=== PATIENT | male | born 1960 | race American Indian/Alaskan Native ===

== ENCOUNTER 2020-03-06 13:29 | Inpatient (IN) | payer OTHER ==
--- NOTE | 2020-03-06 14:13 | Event Note ---
ED Screening Note Date of service: 03/06/20 Time: 14:12 ED Screening Note: 59-year-old -Swedish male presents to the emergency room for 1week of abdominal pain and decreased bowel movement. Patient reports nausea and vomiting. Patient states he has had Tums, mag citrate with no relief. Aylett he may have a fever. Cold chills. This initial assessment/diagnostic orders/clinical plan/treatment(s) is/are subject to change based on patients health status, clinical progression and re- assessment by fellow clinical providers in the ED. Further treatment and workup at subsequent clinical providers discretion. Patient/guardian urged not to elope from the ED as their condition may be serious if not clinically assessed and managed. Initial orders include:
--- NOTE | 2020-03-06 14:58 | XRay Report ---
XR abdomen 1V ap INDICATION / CLINICAL INFORMATION: Abdominal pain constipation. COMPARISON: None available. FINDINGS: TUBES / LINES: None. BOWEL GAS PATTERN: Nonobstructive bowel gas pattern. FREE AIR / EXTRALUMINAL GAS: None seen. ADDITIONAL FINDINGS: No significant additional findings. L5-S1 posterior spinal fusion. IMPRESSION: 1. No significant abnormality. Signer Name: Myron Low MD Signed: 03/06/2020 2:54 PM Workstation Name: [id number]
[2020-03-06 15:10] LABS: Hematocrit 49.3 % (35.5-45.6); Hemoglobin 16.8 gm/dl (11.8-15.2); Mean Corpuscular HGB Conc 34 % (32-34); Mean Corpuscular Volume 89 fl (84-94); Platelet Count 281 K/mm3 (140-440); Red Blood Count 5.54 M/mm3 (3.65-5.03); Red Cell Distribution Width 14.9 % (13.2-15.2)
[2020-03-06 15:16] LABS: Alanine Aminotransferase 10 units/L (7-56); Albumin 4.1 g/dL (3.9-5); Blood Urea Nitrogen 9 mg/dL (9-20); Calcium 9.9 mg/dL (8.4-10.2); Hemolysis Index 11
[2020-03-06 15:17] LABS: BUN/Creatinine Ratio 13
[2020-03-06 16:04] LABS: RBC Morphology Normal; Total Cells Counted 100
[2020-03-06] MEDS ORDERED: FAMOTIDINE 20 MG/2 ML INJ IV ONE (19:34)
[2020-03-06] MEDS ORDERED: SODIUM CHLORIDE 0.9% 1000 ML 1,000 ML IV ONE ×2 (19:34→22:06)
[2020-03-06] MEDS ORDERED: ONDANSETRON 4 MG/2 ML INJ IV ONE (19:34)
[2020-03-06] MEDS ORDERED: MORPHINE 4 MG/1 ML INJ IV ONE (19:34)
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
[2020-03-06 22:18] LABS: Bilirubin,Urine NEG (Negative); Blood,Urine SM (Negative); Color,Urine Yellow (Yellow); Mucus,Urine 3+ /HPF; Protein,Urine <15 mg/dL mg/dL (Negative); Urobilinogen,Urine < 2.0 mg/dL (<2.0)
[2020-03-06] MEDS ORDERED: ACETAMINOPHEN 325 MG TAB PO PRN (23:33)
[2020-03-06] MEDS ORDERED: ONDANSETRON 4 MG/2 ML INJ IV PRN (23:33)
[2020-03-06] MEDS ORDERED: DEXTROSE 50% IN WATER (25GM) 50 ML SYRINGE IV PRN (23:33)
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
[2020-03-07] MEDS: MORPHINE 2 MG/1 ML INJ IV PRN ×4 (02:45→21:24)
[2020-03-07 06:22] LABS: Basophils % (Auto) 0.9 % (0.0-1.8); Eosinophils % (Auto) 0.9 % (0.0-4.3); Hemoglobin 15.7 gm/dl (11.8-15.2); Lymphocytes # (Auto) 1.6 K/mm3 (1.2-5.4); Lymphocytes % (Auto) 39.1 % (13.4-35.0); Mean Corpuscular HGB Conc 34 % (32-34); Mean Corpuscular Volume 90 fl (84-94); Monocytes # (Auto) 0.3 K/mm3 (0.0-0.8); Monocytes % (Auto) 7.2 % (0.0-7.3); Platelet Count 225 K/mm3 (140-440); Red Blood Count 5.14 M/mm3 (3.65-5.03); Red Cell Distribution Width 14.9 % (13.2-15.2)
[2020-03-07 06:31] LABS: INR 1.07 (0.87-1.13)
[2020-03-07 06:38] LABS: Blood Urea Nitrogen 9 mg/dL (9-20); Calcium 9.1 mg/dL (8.4-10.2); Hemolysis Index 5
[2020-03-07 06:39] LABS: BUN/Creatinine Ratio 15
[2020-03-07] MEDS: SODIUM CHLORIDE 0.9% 1000 ML 1,000 ML IV SCH ×2 (07:34→14:57)
[2020-03-07] MEDS: INSULIN LISPRO 100 UNIT/ML VIAL 3 mL SUB-Q SCH ×4 (09:34→21:25)
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
--- NOTE | 2020-03-07 12:01 | Progress Note ---
Assessment and Plan Assessment and plan: Acute pancreatitis. Etiology secondary to alcohol. Continue to trend LFTs and lipase. CT showing inflammatory changes in the head of pancreas. no gallstones seen. Continue IV fluid hydration and n.p.o. status. Follow-up lipid panel and right upper quadrant ultrasound. Diabetes mellitus type 2, uncontrolled. Continue Accu-Cheks and sliding scale insulin Abdominal pain. Etiology secondary to above. Continue supportive care DVT prophylaxis. Continue subcutaneous Lovenox. Disposition. Anticipate discharge in a.m. History Interval history: No new issues overnight. Hospitalist Physical - Constitutional Vitals: Temp Pulse Resp BP Pulse Ox 97.2 F L 78 16 126/75 95 03/07/20 04:17 03/07/20 07:52 03/07/20 04:17 03/07/20 04:17 03/07/20 04:17 General appearance: Present: no acute distress, well-nourished - EENT Eyes: Present: PERRL, EOM intact ENT: hearing intact, clear oral mucosa, dentition normal - Neck Neck: Present: supple, normal ROM - Respiratory Respiratory effort: normal Respiratory: bilateral: CTA - Cardiovascular Rhythm: regular Heart Sounds: Present: S1 & S2. Absent: gallop, rub - Extremities Extremities: no ischemia, No edema, Full ROM - Abdominal General gastrointestinal: soft, non-tender, non-distended, normal bowel sounds - Integumentary Integumentary: Present: clear, warm, dry - Neurologic Neurologic: CNII-XII intact, moves all extremities Results - Labs CBC & Chem 7: 03/07/20 05:45 03/07/20 05:45 Labs: Laboratory Last Values WBC 4.0 K/mm3 (4.5-11.0) L 03/07/20 05:45 RBC 5.14 M/mm3 (3.65-5.03) H 03/07/20 05:45 Hgb 15.7 gm/dl (11.8-15.2) H 03/07/20 05:45 Hct 46.0 % (35.5-45.6) H 03/07/20 05:45 MCV 90 fl (84-94) 03/07/20 05:45 MCH 31 pg (28-32) 03/07/20 05:45 MCHC 34 % (32-34) 03/07/20 05:45 RDW 14.9 % (13.2-15.2) 03/07/20 05:45 Plt Count 225 K/mm3 (140-440) 03/07/20 05:45 Lymph % (Auto) 39.1 % (13.4-35.0) H 03/07/20 05:45 [place] % (Auto) 7.2 % (0.0-7.3) 03/07/20 05:45 Eos % (Auto) 0.9 % (0.0-4.3) 03/07/20 05:45 Baso % (Auto) 0.9 % (0.0-1.8) 03/07/20 05:45 Lymph # (Auto) 1.6 K/mm3 (1.2-5.4) 03/07/20 05:45 [place] # (Auto) 0.3 K/mm3 (0.0-0.8) 03/07/20 05:45 Eos # (Auto) 0.0 K/mm3 (0.0-0.4) 03/07/20 05:45 Baso # (Auto) 0.0 K/mm3 (0.0-0.1) 03/07/20 05:45 Add Manual Diff Complete 03/06/20 14:44 Total Counted 100 03/06/20 14:44 Seg Neutrophils % 51.9 % (40.0-70.0) 03/07/20 05:45 Seg Neuts % (Manual) 57.0 % (40.0-70.0) 03/06/20 14:44 Band Neutrophils % 0 % 03/06/20 14:44 Lymphocytes % (Manual) 30.0 % (13.4-35.0) 03/06/20 14:44 Reactive Lymphs % (Man) 0 % 03/06/20 14:44 Monocytes % (Manual) 7.0 % (0.0-7.3) 03/06/20 14:44 Eosinophils % (Manual) 3.0 % (0.0-4.3) 03/06/20 14:44 Basophils % (Manual) 3.0 % (0.0-1.8) H 03/06/20 14:44 Metamyelocytes % 0 % 03/06/20 14:44 Myelocytes % 0 % 03/06/20 14:44 Promyelocytes % 0 % 03/06/20 14:44 Blast Cells % 0 % 03/06/20 14:44 Nucleated RBC % Not Reportable 03/06/20 14:44 Seg Neutrophils # 2.1 K/mm3 (1.8-7.7) 03/07/20 05:45 Seg Neutrophils # Man 2.7 K/mm3 (1.8-7.7) 03/06/20 14:44 Band Neutrophils # 0.0 K/mm3 03/06/20 14:44 Lymphocytes # (Manual) 1.4 K/mm3 (1.2-5.4) 03/06/20 14:44 Abs React Lymphs (Man) 0.0 K/mm3 03/06/20 14:44 Monocytes # (Manual) 0.3 K/mm3 (0.0-0.8) 03/06/20 14:44 Eosinophils # (Manual) 0.1 K/mm3 (0.0-0.4) 03/06/20 14:44 Basophils # (Manual) 0.1 K/mm3 (0.0-0.1) 03/06/20 14:44 Metamyelocytes # 0.0 K/mm3 03/06/20 14:44 Myelocytes # 0.0 K/mm3 03/06/20 14:44 Promyelocytes # 0.0 K/mm3 03/06/20 14:44 Blast Cells # 0.0 K/mm3 03/06/20 14:44 WBC Morphology Not Reportable 03/06/20 14:44 Hypersegmented Neuts Not Reportable 03/06/20 14:44 Hyposegmented Neuts Not Reportable 03/06/20 14:44 Hypogranular Neuts Not Reportable 03/06/20 14:44 Smudge Cells Not Reportable 03/06/20 14:44 Toxic Granulation Not Reportable 03/06/20 14:44 Toxic Vacuolation Not Reportable 03/06/20 14:44 Dohle Bodies Not Reportable 03/06/20 14:44 Pelger-Huet Anomaly Not Reportable 03/06/20 14:44 Rizwan Rods Not Reportable 03/06/20 14:44 Platelet Estimate Not Reportable 03/06/20 14:44 Clumped Platelets Not Reportable 03/06/20 14:44 Plt Clumps, EDTA Not Reportable 03/06/20 14:44 Large Platelets Not Reportable 03/06/20 14:44 Giant Platelets Not Reportable 03/06/20 14:44 Platelet Satelliting Not Reportable 03/06/20 14:44 Plt Morphology Comment Not Reportable 03/06/20 14:44 RBC Morphology Normal 03/06/20 14:44 Dimorphic RBCs Not Reportable 03/06/20 14:44 Polychromasia Not Reportable 03/06/20 14:44 Hypochromasia Not Reportable 03/06/20 14:44 Poikilocytosis Not Reportable 03/06/20 14:44 Anisocytosis Not Reportable 03/06/20 14:44 Microcytosis Not Reportable 03/06/20 14:44 Macrocytosis Not Reportable 03/06/20 14:44 Spherocytes Not Reportable 03/06/20 14:44 Pappenheimer Bodies Not Reportable 03/06/20 14:44 Sickle Cells Not Reportable 03/06/20 14:44 Target Cells Not Reportable 03/06/20 14:44 Tear Drop Cells Not Reportable 03/06/20 14:44 Ovalocytes Not Reportable 03/06/20 14:44 Helmet Cells Not Reportable 03/06/20 14:44 Ann-[place] Bodies Not Reportable 03/06/20 14:44 [place] Rings Not Reportable 03/06/20 14:44 Angie Cells Not Reportable 03/06/20 14:44 Bite Cells Not Reportable 03/06/20 14:44 Crenated Cell Not Reportable 03/06/20 14:44 Elliptocytes Not Reportable 03/06/20 14:44 Acanthocytes (Spur) Not Reportable 03/06/20 14:44 Rouleaux Not Reportable 03/06/20 14:44 Hemoglobin C Crystals Not Reportable 03/06/20 14:44 Schistocytes Not Reportable 03/06/20 14:44 Malaria parasites Not Reportable 03/06/20 14:44 Ovi Bodies Not Reportable 03/06/20 14:44 Hem Pathologist Commnt No 03/06/20 14:44 PT 14.0 Sec. (12.2-14.9) 03/07/20 05:45 INR 1.07 (0.87-1.13) 03/07/20 05:45 Sodium 134 mmol/L (137-145) L 03/07/20 05:45 Potassium 3.8 mmol/L (3.6-5.0) 03/07/20 05:45 Chloride 97.8 mmol/L (98-107) L 03/07/20 05:45 Carbon Dioxide 25 mmol/L (22-30) 03/07/20 05:45 Anion Gap 15 mmol/L 03/07/20 05:45 BUN 9 mg/dL (9-20) 03/07/20 05:45 Creatinine 0.6 mg/dL (0.8-1.3) L 03/07/20 05:45 Estimated GFR > 60 ml/min 03/07/20 05:45 BUN/Creatinine Ratio 15 % 03/07/20 05:45 Glucose 293 mg/dL (75-100) H 03/07/20 05:45 POC Glucose 208 mg/dL (70-105) H 03/07/20 12:03 Calcium 9.1 mg/dL (8.4-10.2) 03/07/20 05:45 Total Bilirubin 0.40 mg/dL (0.1-1.2) 03/06/20 14:44 AST 9 units/L (5-40) 03/06/20 14:44 ALT 10 units/L (7-56) 03/06/20 14:44 Alkaline Phosphatase 63 units/L (35-129) 03/06/20 14:44 Total Protein 7.9 g/dL (6.3-8.2) 03/06/20 14:44 Albumin 4.1 g/dL (3.9-5) 03/06/20 14:44 Albumin/Globulin Ratio 1.1 % 03/06/20 14:44 Lipase 59 units/L (13-60) 03/07/20 05:45 Urine Color Yellow (Yellow) 03/06/20 22:05 Urine Turbidity Clear (Clear) 03/06/20 22:05 Urine pH 5.0 (5.0-7.0) 03/06/20 22:05 Ur Specific [place] 1.060 (1.003-1.030) H 03/06/20 22:05 Urine Protein <15 mg/dl mg/dL (Negative) 03/06/20 22:05 Urine Glucose (UA) >=500 mg/dL (Negative) 03/06/20 22:05 Urine Ketones 20 mg/dL (Negative) 03/06/20 22:05 Urine Blood Sm (Negative) 03/06/20 22:05 Urine Nitrite Neg (Negative) 03/06/20 22:05 Urine Bilirubin Neg (Negative) 03/06/20 22:05 Urine Urobilinogen < 2.0 mg/dL (<2.0) 03/06/20 22:05 Ur Leukocyte Esterase Sm (Negative) 03/06/20 22:05 Urine WBC (Auto) 26.0 /HPF (0.0-6.0) H 03/06/20 22:05 Urine RBC (Auto) 120.0 /HPF (0.0-6.0) 03/06/20 22:05 U Epithel Cells (Auto) 9.0 /HPF (0-13.0) 03/06/20 22:05 Urine Mucus 3+ /HPF 03/06/20 22:05 Urine Yeast (Budding) 1+ /HPF 03/06/20 22:05 [place]/IV: Voiding Method Toilet IV Catheter Type [Left Hand] INT / Saline Lock Active Medications - Current Medications Current Medications: Generic Name Dose Route Start Last Admin Trade Name Freq PRN Reason Stop Dose Admin Acetaminophen 650 mg 03/06/20 23:33 Tylenol PO Q4H PRN Pain MILD(1-3)/Fever >100.5/ANDREWS Dextrose 0 ml 03/06/20 23:33 D50w (25gm) Syringe IV Q30MIN PRN Hypoglycemia Protocol Enoxaparin Sodium 40 mg 03/07/20 22:00 Enoxaparin SUB-Q QDAY@2200 [facility] Protocol Sodium Chloride 1,000 mls @ 150 mls/hr 03/06/20 23:45 03/07/20 07:34 Nacl 0.9% 1000 Ml IV 150 mls/hr DIRECT ANG Administration Insulin Human Lispro 0 unit 03/07/20 07:30 03/07/20 09:34 Humalog SUB-Q Not Given ACHS [facility] Protocol Morphine Sulfate 2 mg 03/06/20 23:33 03/07/20 07:24 Morphine IV 2 mg Q4H PRN Administration Pain, Moderate (4-6) Ondansetron HCl 4 mg 03/06/20 23:33 Zofran IV Q8H PRN Nausea And Vomiting Sodium Chloride 10 ml 03/07/20 10:00 03/07/20 09:57 Sodium Chloride Flush Syringe 10 Ml IV Not Given BID ANG Sodium Chloride 10 ml 03/06/20 23:33 Sodium Chloride Flush Syringe 10 Ml IV PRN PRN LINE FLUSH
[2020-03-07 12:13] LABS: Chol/HDL Ratio 4.87 %
--- NOTE | 2020-03-07 18:37 | Ultrasound Report ---
US abdomen limited INDICATION / CLINICAL INFORMATION: check for gallstones. COMPARISON: None available. FINDINGS: A small amount of debris is seen floating in the gallbladder without obvious stones present. The gall bladder wall is not thickened. Common bile duct is normal measuring 5 mm. Visualized portions of the liver, right kidney, pancreas and aorta are normal. IMPRESSION: Small amount of free floating in the gallbladder without obvious stones present. Common bile duct is normal in diameter Signer Name: Sorin Hartman MD FACR Signed: 03/07/2020 6:32 PM Workstation Name: [id number]
[2020-03-07] MEDS ORDERED: ENOXAPARIN 40 MG/0.4 ML INJ SUB-Q SCH (22:00)
[2020-03-08] MEDS: INSULIN LISPRO 100 UNIT/ML VIAL 3 mL SUB-Q SCH ×2 (08:00→12:43)
[2020-03-08 09:17] VITALS: BP 152/102
--- NOTE | 2020-03-08 09:52 | Gastroenterology Progress Note ---
Assessment and Plan - Patient Problems (1) Acute pancreatitis Current Visit: Yes Status: Acute Qualifiers: Pancreatitis type: alcohol induced Acute pancreatitis complication: no infection or necrosis Qualified Code(s): K85.20 - Alcohol induced acute pancreatitis without necrosis or infection Plan to address problem: - abdominal pain x 1 week after days of binge drinking, shots of liquor. - likely 2/2 alcohol induced. - normal LFTs. - lipase mildly elevated - CT showing inflammatory changes in the head of pancreas. no gallstones seen. - US without any obvious gallstones. - clinically improving. tolerating diet. Rec - advance diet as tolerated. - advised on alcohol cessation. - supportive care. - will sign off. please call with questions. Subjective Date of service: 03/08/20 Interval history: Patient feels better. Able to tolerate eggs this morning. No nausea/vomiting. Objective - Constitutional Vitals: Temp Pulse Resp BP Pulse Ox 98.0 F 98 H 20 152/102 96 03/08/20 08:13 03/08/20 08:13 03/08/20 08:13 03/08/20 08:13 03/08/20 08:13 General appearance: no acute distress - EENT Eyes: EOM intact ENT: hearing intact - Respiratory Respiratory effort: normal - Cardiovascular Rhythm: regular Heart Sounds: Present: S1 & S2 - Gastrointestinal General gastrointestinal: Present: soft, non-tender, non-distended - Integumentary Integumentary: Present: clear, warm - Neurologic Neurological: alert and oriented x3 - Labs CBC & Chem 7: 03/07/20 05:45 03/07/20 05:45 Labs: Laboratory Results - last 24 hr 03/07/20 03/07/20 03/07/20 05:54 12:03 15:53 POC Glucose 208 H 233 H Triglycerides 124 Cholesterol 161 LDL Cholesterol Direct 106 HDL Cholesterol 33 L Cholesterol/HDL Ratio 4.87 03/07/20 03/08/20 20:56 09:14 POC Glucose 220 H 192 H Triglycerides Cholesterol LDL Cholesterol Direct HDL Cholesterol Cholesterol/HDL Ratio
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
== END 2020-03-08 12:45 | disposition home or self-care (01) | DRG 440 ==
LOC: ED 13:29 → OBSVTOIN 23:33 → 4A 23:33
PROVIDERS: ADMIT Internal Medicine Geriatric Medicine; ATTEND Internal Medicine
DX: K85.20 Alcohol induced acute pancreatitis without necrosis or infection (principal); E11.65 Type 2 diabetes mellitus with hyperglycemia; I10 Essential (primary) hypertension; M19.90 Unspecified osteoarthritis, unspecified site; Z79.4 Long term (current) use of insulin; F17.200 Nicotine dependence, unspecified, uncomplicated; F10.10 Alcohol abuse, uncomplicated; Y90.9 Presence of alcohol in blood, level not specified
CPT/HCPCS: 36415; 74018; 74177; 76705; 80048; 80053; 80061; 81001; 82962; 83690; 85007; 85025; 85610; 87086; 99406; G0378; J1650; J2270; J2405; J7030; Q9967

== ENCOUNTER 2020-06-13 19:33 | Inpatient (IN) | payer SELFPAY ==
[2020-06-13] MEDS ORDERED: FAMOTIDINE 20 MG TAB PO ONE (20:11)
[2020-06-13] MEDS ORDERED: ONDANSETRON 4 MG ODT TAB PO ONE (20:11)
--- NOTE | 2020-06-13 20:15 | Event Note ---
ED Screening Note Date of service: 06/13/20 Time: 20:12 ED Screening Note: Patient is a 59 yo AA male with a h/o NIDDM who presents to the ED with c/o acute onset persistent diffuse abdominal pain, nausea and vomiting for the last 4 days, stating that he has not been able to keep anything down due to persistent nausea and vomiting. Patient denies fever, chills, cough, chest pain, vision changes, back pain, dysuria, testicular pain, sore throat, headache, dizziness or diarrhea. This initial assessment/diagnostic orders/clinical plan/treatment(s) is/are subject to change based on patients health status, clinical progression and re- assessment by fellow clinical providers in the ED. Further treatment and workup at subsequent clinical providers discretion. Patient/guardian urged not to elope from the ED as their condition may be serious if not clinically assessed and managed. Initial orders include: CBC, CMP, LIPASE, UA, Abdo-pelvis CT scan w/contrast
[2020-06-13 20:35] LABS: Basophils # (Auto) 0.1 K/mm3 (0.0-0.1); Basophils % (Auto) 1.6 % (0.0-1.8); Eosinophils % (Auto) 0.7 % (0.0-4.3); Hematocrit 45.6 % (35.5-45.6); Hemoglobin 15.4 gm/dl (11.8-15.2); Lymphocytes # (Auto) 2.5 K/mm3 (1.2-5.4); Lymphocytes % (Auto) 40.5 % (13.4-35.0); Mean Corpuscular HGB Conc 34 % (32-34); Mean Corpuscular Volume 93 fl (84-94); Monocytes # (Auto) 0.3 K/mm3 (0.0-0.8); Monocytes % (Auto) 5.1 % (0.0-7.3); Platelet Count 262 K/mm3 (140-440); Red Blood Count 4.92 M/mm3 (3.65-5.03); Red Cell Distribution Width 13.6 % (13.2-15.2)
[2020-06-13 20:48] LABS: Alanine Aminotransferase 10 units/L (7-56); Albumin 3.7 g/dL (3.9-5); BUN/Creatinine Ratio 17; Blood Urea Nitrogen 12 mg/dL (9-20); Calcium 9.3 mg/dL (8.4-10.2); Hemolysis Index 7
--- NOTE | 2020-06-13 22:33 | Cat Scan Report ---
CT ABDOMEN AND PELVIS WITH CONTRAST INDICATION / CLINICAL INFORMATION: Abdominal pain, N/V. TECHNIQUE: Axial CT images were obtained through the abdomen and pelvis after IV contrast. All CT sc ans at this location are performed using CT dose reduction for ALARA by means of automated exposure c ontrol. COMPARISON: 03/06/2020 FINDINGS: LOWER CHEST: No significant abnormality LIVER: No significant abnormality GALLBLADDER/BILIARY TREE: No significant abnormality PANCREAS: There is inflammatory stranding and unencapsulated fluid surrounding the pancreatic body an d tail. No organized fluid collection. Pancreas enhances normally. SPLEEN: No significant abnormality ADRENALS: No significant abnormality KIDNEYS / URETER: Renal cysts. Kidneys enhance symmetrically. No hydronephrosis. URINARY BLADDER: No significant abnormality REPRODUCTIVE ORGANS: Prostate is enlarged. STOMACH / SMALL BOWEL: Stomach and small bowel are normal in caliber. No evidence of bowel inflammati on. COLON: The colon is unremarkable. The appendix is normal in caliber. LYMPH NODES: No significant adenopathy. VASCULATURE: Mild atherosclerotic calcification without acute abnormality. OTHER: No free air, free fluid, or focal fluid collection is identified. SKELETAL SYSTEM: No acute osseous findings. Postoperative changes at L5-S1. Mild scattered degenerati ve changes of the spine. IMPRESSION: 1. Acute interstitial edematous pancreatitis with inflammatory stranding and unencapsulated fluid sushma rounding the pancreatic body and tail. No organized fluid collection. 2. Other chronic, incidental findings as above. Signer Name: Prince Phillips MD Signed: 06/13/2020 10:28 PM Workstation Name: [email or web address]
[2020-06-13] MEDS ORDERED: MORPHINE 4 MG/1 ML INJ IV ONE (22:50)
[2020-06-13] MEDS ORDERED: ONDANSETRON 4 MG/2 ML INJ IV ONE (22:50)
[2020-06-13] MEDS ORDERED: SODIUM CHLORIDE 0.9% 1000 ML 1,000 ML IV ONE (22:50)
[2020-06-13] MEDS ORDERED: INSULIN REGULAR, HUMAN 100 UNITS/1 ML IV ONE (22:54)
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
[2020-06-13] MEDS ORDERED: FAMOTIDINE 20 MG/2 ML INJ IV ONE (23:08)
[2020-06-14] MEDS ORDERED: ONDANSETRON 4 MG/2 ML INJ IV PRN (00:35)
[2020-06-14] MEDS ORDERED: DEXTROSE 50% IN WATER (25GM) 50 ML SYRINGE IV PRN (00:40)
[2020-06-14] MEDS: SODIUM CHLORIDE 0.9% 1000 ML 1,000 ML IV SCH ×4 (01:19→21:35)
[2020-06-14] MEDS: HEPARIN 5,000 UNIT/1 ML VIAL SUB-Q SCH ×3 (01:19→22:51)
--- NOTE | 2020-06-14 06:18 | History and Physical Report ---
History of Present Illness Date of examination: 06/13/20 Date of admission: 06/13/20 23:12 Chief complaint: Chief complaint is abdominal pain History of present illness: History of presenting illness, patient is a 59-year-old male who presented to the emergency room with history of sharp epigastric and left upper quadrant abdominal pain going on for 5 days, pain radiates to the back and is associated with nausea and vomiting, patient said he could not keep anything down now unable to eat. Patient admitted to drinking alcohol on daily basis and has had similar symptoms when he had pancreatitis in the past, there is no history of fever or chills, no history of shortness of breath cough or chest pain, patient also denied history of diarrhea or body aches. Past History Past Medical History: diabetes Social history: no significant social history Family history: no significant family history Medications and Allergies Allergies Allergy/AdvReac Type Severity Reaction Status Date / Time No Known Allergies Allergy Verified 03/06/20 13:50 Home Medications Medication Instructions Recorded Confirmed Last Taken Type Ibuprofen [Motrin 600 MG tab] 600 mg PO Q8HR #14 tablet 11/07/19 12/24/19 Unknown Rx metFORMIN [Glucophage] 850 mg PO BID #60 tablet 11/07/19 12/24/19 Unknown Rx Insulin NPH, Human [NovoLIN N] 12 unit SUB-Q BIDDIAB 30 Days 12/24/19 Unknown Rx Insulin Regular, Human [HumuLIN R] 0 unit SUB-Q QHS 30 Days 12/24/19 Unknown Rx cephALEXin [Keflex] 500 mg PO Q6HR 14 Days 12/24/19 Unknown Rx traMADoL [Ultram 50 MG tab] 50 mg PO Q6HR PRN #14 tablet 12/24/19 Unknown Rx Active Meds: Active Medications Dextrose (Dextrose 50% In Water (25gm) 50 Ml Syringe) 0 ml IV Q30MIN PRN; Protocol PRN Reason: Hypoglycemia Heparin Sodium (Porcine) (Heparin 5,000 Unit/1 Ml Vial) 5,000 unit SUB-Q Q12HR ANG Last Admin: 06/14/20 01:19 Dose: 5,000 unit Documented by: Sodium Chloride (Nacl 0.9% 1000 Ml) 1,000 mls @ 125 mls/hr IV DIRECT ANG Last Admin: 06/14/20 01:19 Dose: 125 mls/hr Documented by: Insulin Human Regular (Insulin Regular, Human 100 Units/1 Ml) 0 units SUB-Q Q4H ANG; Protocol Morphine Sulfate (Morphine 2 Mg/1 Ml Inj) 2 mg IV Q3H PRN PRN Reason: Pain, Moderate (4-6) Ondansetron HCl (Ondansetron 4 Mg/2 Ml Inj) 4 mg IV Q8H PRN PRN Reason: Nausea And Vomiting Review of Systems Constitutional: no fever, no chills, no sweats, no fatigue, no weakness Eyes: bilateral: other (NO BILATERAL EYE SYMPTOMS) Ears, nose, mouth and throat: no ear pain Cardiovascular: no chest pain, no palpitations, no rapid/irregular heart beat, no lightheadedness, no shortness of breath Respiratory: no cough, no shortness of breath, no dyspnea on exertion, no congestion Gastrointestinal: abdominal pain, nausea, vomiting, no diarrhea, no constipation, no change in bowel habits, no hematemesis, no hematochezia, no early satiety, no heartburn Genitourinary Male: no hematuria, no flank pain, no urinary frequency, no urinary hesitancy, no nocturia, no incontinence Rectal: no pain, no itching Musculoskeletal: no neck stiffness, no neck pain Integumentary: no rash, no pruritis, no redness, no sores, no wounds, no jaundice, no boils, no blisters Neurological: no paralysis, no weakness, no tingling, no seizures, no syncope, no tremors, no vertigo, no headaches, no migraines, no convulsions, no change in speech, no change in mentation, no confusion Psychiatric: no anxiety, no depression Endocrine: no polydipsia, no polyuria, no nocturia Hematologic/Lymphatic: no easy bruising, no easy bleeding, no lymphadenopathy Exam - Constitutional Vitals: Temp Pulse Resp BP Pulse Ox 97.8 F 91 H 14 127/69 92 06/14/20 03:53 06/14/20 03:53 06/14/20 03:53 06/14/20 03:53 06/14/20 03:53 General appearance: Present: mild distress - EENT Eyes: Present: PERRL ENT: hearing intact, clear oral mucosa - Neck Neck: Present: supple, normal ROM - Respiratory Respiratory effort: normal - Cardiovascular Rhythm: regular Heart Sounds: Present: S1 & S2. Absent: gallop, systolic murmur, diastolic murmur, click - Extremities Extremities: no ischemia, No edema Peripheral Pulses: within normal limits - Abdominal General gastrointestinal: Present: soft, tender, non-distended, normal bowel sounds. Absent: non-tender, distended, rigid, hepatomegaly, splenomegaly, mass Localized gastrointestinal: tender: LUQ, epigastric periumbilical Male genitourinary: Present: deferred - Rectal Rectal Exam: deferred - Integumentary Integumentary: Present: clear, warm, dry - Musculoskeletal Musculoskeletal: strength equal bilaterally - Psychiatric Psychiatric: appropriate mood/affect HEART Score - HEART Score Risk factors: 1-2 risk factors Troponin: < normal limit - Critical Actions Critical Actions: 0-3 pts:0.9-1.7%risk of adverse cardiac event.Candidate for discharge Results - Labs CBC & Chem 7: 06/13/20 20:13 06/13/20 20:13 Labs: Laboratory Last Values WBC 6.2 K/mm3 (4.5-11.0) 06/13/20 20:13 RBC 4.92 M/mm3 (3.65-5.03) 06/13/20 20:13 Hgb 15.4 gm/dl (11.8-15.2) H 06/13/20 20:13 Hct 45.6 % (35.5-45.6) 06/13/20 20:13 MCV 93 fl (84-94) 06/13/20 20:13 MCH 31 pg (28-32) 06/13/20 20:13 MCHC 34 % (32-34) 06/13/20 20:13 RDW 13.6 % (13.2-15.2) 06/13/20 20:13 Plt Count 262 K/mm3 (140-440) 06/13/20 20:13 Lymph % (Auto) 40.5 % (13.4-35.0) H 06/13/20 20:13 [place] % (Auto) 5.1 % (0.0-7.3) 06/13/20 20:13 Eos % (Auto) 0.7 % (0.0-4.3) 06/13/20 20:13 Baso % (Auto) 1.6 % (0.0-1.8) 06/13/20 20:13 Lymph # (Auto) 2.5 K/mm3 (1.2-5.4) 06/13/20 20:13 [place] # (Auto) 0.3 K/mm3 (0.0-0.8) 06/13/20 20:13 Eos # (Auto) 0.0 K/mm3 (0.0-0.4) 06/13/20 20:13 Baso # (Auto) 0.1 K/mm3 (0.0-0.1) 06/13/20 20:13 Seg Neutrophils % 52.1 % (40.0-70.0) 06/13/20 20:13 Seg Neutrophils # 3.2 K/mm3 (1.8-7.7) 06/13/20 20:13 Sodium 133 mmol/L (137-145) L 06/13/20 20:13 Potassium 3.7 mmol/L (3.6-5.0) 06/13/20 20:13 Chloride 95.6 mmol/L (98-107) L 06/13/20 20:13 Carbon Dioxide 25 mmol/L (22-30) 06/13/20 20:13 Anion Gap 16 mmol/L 06/13/20 20:13 BUN 12 mg/dL (9-20) 06/13/20 20:13 Creatinine 0.7 mg/dL (0.8-1.3) L 06/13/20 20:13 Estimated GFR > 60 ml/min 06/13/20 20:13 BUN/Creatinine Ratio 17 % 06/13/20 20:13 Glucose 300 mg/dL (75-100) H 06/13/20 20:13 POC Glucose 256 mg/dL (70-105) H 06/14/20 03:59 Calcium 9.3 mg/dL (8.4-10.2) 06/13/20 20:13 Total Bilirubin 0.40 mg/dL (0.1-1.2) 06/13/20 20:13 AST 9 units/L (5-40) 06/13/20 20:13 ALT 10 units/L (7-56) 06/13/20 20:13 Alkaline Phosphatase 62 units/L (35-129) 06/13/20 20:13 Total Protein 7.6 g/dL (6.3-8.2) 06/13/20 20:13 Albumin 3.7 g/dL (3.9-5) L 06/13/20 20:13 Albumin/Globulin Ratio 0.9 % 06/13/20 20:13 Lipase 167 units/L (13-60) H 06/13/20 20:13 Assessment and Plan - Patient Problems (1) Acute pancreatitis Current Visit: Yes Status: Acute Plan to address problem: 1. NPO 2. I.V MORPHINE FOR PAIN 3. I.V NORMAL SALINE 4. I.V ZOFRAN FOR NAUSEA AND VOMITING 5. LIPASE LEVEL MONITORING 6. TYLENOL FOR FEVER
[2020-06-14] MEDS: INSULIN REGULAR, HUMAN 100 UNITS/1 ML SUB-Q SCH ×6 (07:47→21:41)
[2020-06-14 09:43] LABS: Bilirubin,Urine NEG (Negative); Blood,Urine NEG (Negative); Color,Urine Yellow (Yellow); Mucus,Urine 3+ /HPF; Protein,Urine <15 mg/dL mg/dL (Negative); Urobilinogen,Urine < 2.0 mg/dL (<2.0)
[2020-06-14] MEDS: MORPHINE 2 MG/1 ML INJ IV PRN ×3 (12:22→21:35)
--- NOTE | 2020-06-14 17:04 | Event Note ---
Date: 06/14/20
[2020-06-15] MEDS: INSULIN REGULAR, HUMAN 100 UNITS/1 ML SUB-Q SCH ×6 (05:44→23:36)
[2020-06-15] MEDS: SODIUM CHLORIDE 0.9% 1000 ML 1,000 ML IV SCH ×2 (05:57→16:02)
[2020-06-15] MEDS: MORPHINE 2 MG/1 ML INJ IV PRN (05:58)
[2020-06-15 06:54] LABS: Blood Urea Nitrogen 9 mg/dL (9-20); Calcium 8.5 mg/dL (8.4-10.2); Hemolysis Index 28
[2020-06-15 06:56] LABS: BUN/Creatinine Ratio 15
[2020-06-15] MEDS: HEPARIN 5,000 UNIT/1 ML VIAL SUB-Q SCH ×2 (09:24→21:31)
--- NOTE | 2020-06-15 09:58 | Progress Note ---
Assessment and Plan Patient is 59 years old male with history of hypertension, diabetes and previous episode of acute pancreatitis last year presented to the ER complaining of epigastric pain. In the ER patient had elevated lipase and elevated blood glucose of 300. CT abdomen pelvis showed acute pancreatitis. Admitted for further evaluation and management. -- Acute pancreatitis 1. start on clear liquid 2. I.V MORPHINE FOR PAIN 3. I.V NORMAL SALINE 4. I.V ZOFRAN FOR NAUSEA AND VOMITING 5. LIPASE LEVEL MONITORING 6. TYLENOL FOR FEVER --Alcohol abuse, counseled for cessation --Mild hyponatremia, continue IV fluid hydration-- --DVT prophylaxis, Lovenox Daily course: 06/14: Continue aggressive IV fluid hydration, as needed pain management and replete electrolytes. Start on clear liquid diet. If tolerates well will advance to more solid food tomorrow. Subjective Date of service: 06/14/20 Interval history: Patient seen and examined. Medical records and medication list reviewed. No acute event overnight noted by the RN. Patient denies any chest pain or difficulty breathing. Patient stated epigastric pain has improved. Discussed plan of care at bedside with patient. Objective - Exam Narrative Exam: - General Limitations: No Limitations General appearance: alert, in no apparent distress - Head Head exam: Present: atraumatic, normocephalic, normal inspection - Eye Eye exam: Present: normal appearance - ENT ENT exam: Present: normal exam, normal orophraynx, mucous membranes moist - Neck Neck exam: Present: normal inspection, full ROM. Absent: tenderness, meningismus - Respiratory Respiratory exam: Present: normal lung sounds bilaterally - Cardiovascular Cardiovascular Exam: Present: regular rate, normal rhythm, normal heart sounds - GI/Abdominal GI/Abdominal exam: Present: soft, tenderness (Epigastric), normal bowel sounds. Absent: distended, guarding, rebound, rigid, organomegaly, mass, bruit, pulsatile mass, hernia - Extremities Exam Extremities exam: Present: normal inspection, full ROM, normal capillary refill. Absent: tenderness, pedal edema, joint swelling, calf tenderness - Neurological Exam Neurological exam: Present: alert, oriented X3, CN II-XII intact, normal gait, reflexes normal. Absent: motor sensory deficit - Psychiatric Psychiatric exam: Present: normal mood - Skin Skin exam: Present: warm, intact, normal color - Constitutional Vitals: Vital Signs - 12hr 06/14/20 06/14/20 06/15/20 22:00 23:00 00:36 Temperature 98.4 F Pulse Rate 76 76 Respiratory 18 18 Rate Blood Pressure 132/90 Blood Pressure [Left] O2 Sat by Pulse 95 Oximetry 06/15/20 06/15/20 06/15/20 05:05 05:58 07:30 Temperature 98.6 F 98.6 F Pulse Rate 84 84 Respiratory 18 18 20 Rate Blood Pressure 159/111 Blood Pressure 143/102 [Left] O2 Sat by Pulse 94 97 Oximetry - Labs CBC & Chem 7: 06/13/20 20:13 06/15/20 04:29 Labs: Abnormal lab results 06/14/20 06/14/20 06/14/20 Range/Units 10:14 14:47 17:05 Creatinine (0.8-1.3) mg/dL Glucose (75-100) mg/dL POC Glucose 238 H 225 H 243 H (70-105) mg/dL 06/14/20 06/15/20 06/15/20 Range/Units 21:21 04:29 06:33 Creatinine 0.6 L (0.8-1.3) mg/dL Glucose 244 H (75-100) mg/dL POC Glucose 277 H 293 H (70-105) mg/dL 06/15/20 Range/Units 08:41 Creatinine (0.8-1.3) mg/dL Glucose (75-100) mg/dL POC Glucose 278 H (70-105) mg/dL HEART Score - HEART Score Risk factors: 1-2 risk factors Troponin: < normal limit - Critical Actions Critical Actions: 0-3 pts:0.9-1.7%risk of adverse cardiac event.Candidate for discharge
--- NOTE | 2020-06-15 13:25 | Progress Note ---
Assessment and Plan Patient is 59 years old male with history of hypertension, diabetes and previous episode of acute pancreatitis last year presented to the ER complaining of epigastric pain. In the ER patient had elevated lipase and elevated blood glucose of 300. CT abdomen pelvis showed acute pancreatitis. Admitted for further evaluation and management. -- Acute pancreatitis 1. advance diet as tolerated 2. I.V MORPHINE FOR PAIN 3. I.V NORMAL SALINE 4. I.V ZOFRAN FOR NAUSEA AND VOMITING 5. LIPASE LEVEL MONITORING 6. TYLENOL FOR FEVER --Alcohol abuse, counseled for cessation --Mild hyponatremia, continue IV fluid hydration --DM type 2, check A1c, start on insulin 70/30 --DVT prophylaxis, Lovenox Daily course: 06/14: Continue aggressive IV fluid hydration, as needed pain management and replete electrolytes. Start on clear liquid diet. If tolerates well will advance to more solid food tomorrow. 06/15: advance diet, adjust insulin dose, check a1c Subjective Date of service: 06/15/20 Objective - Constitutional Vitals: Vital Signs - 12hr 06/15/20 06/15/20 06/15/20 05:05 05:58 07:15 Temperature 98.6 F Pulse Rate 84 71 Respiratory 18 18 Rate Blood Pressure 159/111 Blood Pressure [Left] O2 Sat by Pulse 94 Oximetry 06/15/20 07:30 Temperature 98.6 F Pulse Rate 84 Respiratory 20 Rate Blood Pressure Blood Pressure 143/102 [Left] O2 Sat by Pulse 97 Oximetry - Labs CBC & Chem 7: 06/13/20 20:13 06/15/20 04:29 Labs: Abnormal lab results 06/14/20 06/14/20 06/14/20 Range/Units 10:14 14:47 17:05 Creatinine (0.8-1.3) mg/dL Glucose (75-100) mg/dL POC Glucose 238 H 225 H 243 H (70-105) mg/dL 06/14/20 06/15/20 06/15/20 Range/Units 21:21 04:29 06:33 Creatinine 0.6 L (0.8-1.3) mg/dL Glucose 244 H (75-100) mg/dL POC Glucose 277 H 293 H (70-105) mg/dL 06/15/20 Range/Units 08:41 Creatinine (0.8-1.3) mg/dL Glucose (75-100) mg/dL POC Glucose 278 H (70-105) mg/dL HEART Score - HEART Score Risk factors: 1-2 risk factors Troponin: < normal limit - Critical Actions Critical Actions: 0-3 pts:0.9-1.7%risk of adverse cardiac event.Candidate for discharge
[2020-06-15] MEDS ORDERED: INSULIN NPH, HUMAN 100 UNIT/1 ML SUB-Q SCH (17:00)
[2020-06-16] MEDS: INSULIN REGULAR, HUMAN 100 UNITS/1 ML SUB-Q SCH ×5 (01:00→16:07)
[2020-06-16] MEDS: HEPARIN 5,000 UNIT/1 ML VIAL SUB-Q SCH (10:10)
[2020-06-16] MEDS ORDERED: INSULIN NPH, HUMAN 100 UNIT/1 ML SUB-Q SCH (10:17)
--- NOTE | 2020-06-16 10:33 | Discharge Summary ---
Providers - Providers Date of Admission: 06/13/20 23:12 Date of discharge: 06/16/20 Attending physician: STERLING DUNAWAY Primary care physician: NEIGHBORHOOD COORDINATOR Hospitalization Condition: Stable Hospital course: Patient is 59 years old male with history of hypertension, diabetes and previous episode of acute pancreatitis last year presented to the ER complaining of epi gastric pain. In the ER patient had elevated lipase and elevated blood glucose of 300. CT abdomen pelvis showed acute pancreatitis. Admitted for further evaluation and management. Discharge diagnosis: -- Acute pancreatitis 1. advance diet as tolerated 2. I.V MORPHINE FOR PAIN 3. I.V NORMAL SALINE 4. I.V ZOFRAN FOR NAUSEA AND VOMITING 5. LIPASE LEVEL MONITORING 6. TYLENOL FOR FEVER --Alcohol abuse, counseled for cessation --Mild hyponatremia, continue IV fluid hydration --DM type 2, 14.2 A1c, start on insulin 70/30 --DVT prophylaxis, Lovenox Daily course: 06/14: Continue aggressive IV fluid hydration, as needed pain management and replete electrolytes. Start on clear liquid diet. If tolerates well will advance to more solid food tomorrow. 06/15: advance diet, adjust insulin dose, check a1c Disposition: DC-01 TO HOME OR SELFCARE Time spent for discharge: 34 minutes Exam - Constitutional Vitals: Temp Pulse Resp BP Pulse Ox 98.9 F 80 20 130/92 97 06/16/20 09:06 06/16/20 09:06 06/16/20 09:06 06/16/20 09:06 06/16/20 09:06 Plan Activity: advance as tolerated Weight Bearing Status: Weight Bear as Tolerated Diet: diabetic, other (Abstinence from alcohol) Special Instructions: record blood sugar diary Follow up with: PRIMARY CAREMD [Primary Care Provider] - 3-5 Days SHER HERRERA MD [Staff Physician] - 7 Days Prescriptions: Folic Acid 1 mg PO DAILY #30 tablet metFORMIN [Glucophage] 850 mg PO BID #60 tablet Aspirin EC [Halfprin EC] 81 mg PO QDAY #30 tablet. Insulin Regular, Human [HumuLIN R] 0 units SUB-Q QACHS 30 Days Insulin NPH, Human [NovoLIN N] 12 unit SUB-Q BIDDIAB 30 Days units Thiamine [Vitamin B-1] 100 mg PO QDAY #14 tablet
[2020-06-16 15:13] VITALS: BP 130/88
[2020-06-16] MEDS ORDERED: FAMOTIDINE 10 MG TAB PO SCH (22:00)
== END 2020-06-16 17:30 | disposition home or self-care (01) | DRG 439 ==
LOC: ED 19:33 → 4A 23:12
PROVIDERS: ADMIT Internal Medicine; ATTEND Internal Medicine
DX: K85.90 Acute pancreatitis without necrosis or infection, unspecified (principal); E87.1 Hypo-osmolality and hyponatremia; I10 Essential (primary) hypertension; E11.65 Type 2 diabetes mellitus with hyperglycemia; F10.10 Alcohol abuse, uncomplicated; M19.90 Unspecified osteoarthritis, unspecified site; F17.200 Nicotine dependence, unspecified, uncomplicated; Z71.41 Alcohol abuse counseling and surveillance of alcoholic; Z79.899 Other long term (current) drug therapy; Z79.4 Long term (current) use of insulin
CPT/HCPCS: 36415; 74177; 80048; 80053; 81001; 82962; 83036; 83690; 85025; 96361; 96374; 96375; 96376; G0378; J1644; J1815; J2270; J2405; J7030; Q9967

== ENCOUNTER 2020-09-22 11:40 | Emergency (ER) | payer SELFPAY ==
[2020-09-22 13:02] VITALS: BP 140/94
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
--- NOTE | 2020-09-22 14:21 | XRay Report ---
. XR chest routine 2V INDICATION / CLINICAL INFORMATION: cough; hx tobacco use and diabetes COMPARISON: August 20 2019 FINDINGS: SUPPORT DEVICES: None. HEART / MEDIASTINUM: No significant abnormality. LUNGS / PLEURA: Lungs are clear. Costophrenic sulci are sharp. No pneumothorax. ADDITIONAL FINDINGS: No significant additional findings. IMPRESSION: 1. No acute findings. Signer Name: Myron Low MD Signed: 09/22/2020 2:17 PM Workstation Name: [employer]
== END 2020-09-22 16:50 | disposition home or self-care (01) ==
LOC: ED 11:40
DX: J06.9 Acute upper respiratory infection, unspecified (principal); B97.89 Other viral agents as the cause of diseases classified elsewhere; I10 Essential (primary) hypertension; E11.9 Type 2 diabetes mellitus without complications; M19.90 Unspecified osteoarthritis, unspecified site; Z79.82 Long term (current) use of aspirin; Z79.4 Long term (current) use of insulin; Z79.899 Other long term (current) drug therapy
CPT/HCPCS: 71046; 99283

== ENCOUNTER 2021-07-31 11:06 | Outpatient (CLI) | payer MEDICAID ==
[2021-07-31] MEDS ORDERED: LIDOCAINE (4%) 40 MG/ML TOPICAL SOLN 50 ML BOTTLE TP ONE (12:40)
== END 2021-07-31 11:07 | disposition home or self-care (01) ==
LOC: WOUND 11:06
PROVIDERS: ATTEND Surgery
DX: T81.89XD Other complications of procedures, not elsewhere classified, subsequent encounter (principal); S31.819D Unspecified open wound of right buttock, subsequent encounter; E10.628 Type 1 diabetes mellitus with other skin complications; I10 Essential (primary) hypertension; F17.210 Nicotine dependence, cigarettes, uncomplicated; X58.XXXD Exposure to other specified factors, subsequent encounter; Y83.8 Other surgical procedures as the cause of abnormal reaction of the patient, or of later complication, without mention of misadventure at the time of the procedure

== ENCOUNTER 2021-08-14 10:56 | Outpatient (CLI) | payer MEDICAID | END 2021-08-14 10:57 | disposition home or self-care (01) | LOC: WOUND 10:56 | PROVIDERS: ATTEND Surgery | DX: T81.89XD Other complications of procedures, not elsewhere classified, subsequent encounter (principal); S31.829D Unspecified open wound of left buttock, subsequent encounter; E10.628 Type 1 diabetes mellitus with other skin complications; I10 Essential (primary) hypertension; F17.210 Nicotine dependence, cigarettes, uncomplicated; X58.XXXD Exposure to other specified factors, subsequent encounter; Y83.8 Other surgical procedures as the cause of abnormal reaction of the patient, or of later complication, without mention of misadventure at the time of the procedure ==

== ENCOUNTER 2021-08-28 10:04 | Outpatient (CLI) | payer MEDICAID ==
[2021-08-28] MEDS ORDERED: LIDOCAINE (4%) 40 MG/ML TOPICAL SOLN 50 ML BOTTLE TP ONE (11:04)
[2021-08-28] MEDS ORDERED: SILVER NITRATE APPLICATOR 1 EA TP ONE (11:05)
== END 2021-08-28 10:05 | disposition home or self-care (01) ==
LOC: WOUND 10:04
PROVIDERS: ATTEND Surgery
DX: T81.89XD Other complications of procedures, not elsewhere classified, subsequent encounter (principal); S31.829D Unspecified open wound of left buttock, subsequent encounter; E10.628 Type 1 diabetes mellitus with other skin complications; I10 Essential (primary) hypertension; F17.210 Nicotine dependence, cigarettes, uncomplicated; X58.XXXD Exposure to other specified factors, subsequent encounter; Y83.8 Other surgical procedures as the cause of abnormal reaction of the patient, or of later complication, without mention of misadventure at the time of the procedure
CPT/HCPCS: 17250

== ENCOUNTER 2021-09-11 11:46 | Outpatient (CLI) | payer MEDICAID ==
[2021-09-11] MEDS ORDERED: LIDOCAINE (4%) 40 MG/ML TOPICAL SOLN 50 ML BOTTLE TP ONE (11:58)
== END 2021-09-11 11:47 | disposition home or self-care (01) ==
LOC: WOUND 11:46
PROVIDERS: ATTEND Surgery
DX: T81.89XD Other complications of procedures, not elsewhere classified, subsequent encounter (principal); S31.829D Unspecified open wound of left buttock, subsequent encounter; E10.628 Type 1 diabetes mellitus with other skin complications; I10 Essential (primary) hypertension; F17.210 Nicotine dependence, cigarettes, uncomplicated; Z79.84 Long term (current) use of oral hypoglycemic drugs; Z79.899 Other long term (current) drug therapy; X58.XXXD Exposure to other specified factors, subsequent encounter; Y83.8 Other surgical procedures as the cause of abnormal reaction of the patient, or of later complication, without mention of misadventure at the time of the procedure
CPT/HCPCS: 99214; G0463